=== PATIENT | male | born 1995 | race African-American/Black ===

== ENCOUNTER 2016-04-03 10:15 | Emergency (ER) ==
--- NOTE | 2016-04-03 11:33 | EDDOCDS ---
Nurse's Notes [facility] Name: Tim Edward Age: 20 yrs Sex: Male : 1995 Arrival Date: 04/03/2016 Time: 10:15 Bed TR5 Private MD: SONIA River Diagnosis: Acute pharyngitis, unspecified Presentation: 04/03 10:24 Presenting complaint: Patient states: he has had a headache and sore throat for 2 days kcs - has chills and fever. Adult Sepsis Screening: The patient does not have new or worsening altered mentation. Patient's respiratory rate is less than 22. Systolic blood pressure is greater than 100. Patient has a qSOFA score of 0- Negative Sepsis Screen. Suicide/Homicide risk assessment- the patient denies having any suicidal and/or homicidal ideations and does not present with any other emotional, behavioral or mental health complaints. 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 Transition of care: patient was not received from another setting of care. 10:24 Acuity: NATANAEL Level 4 kcs 10:24 Method Of Arrival: Walkin/Carried/Asstd kcs Triage Assessment: 10:26 General: Appears comfortable, well developed, well nourished, well groomed, Behavior is kcs cooperative, pleasant. Pain: Location: head = 5/10 and throat = 8/10 Pain currently is 5 out of 10 on a pain scale. HIV screening NA for this visit active duty . Neurological: Level of Consciousness is awake, alert. Respiratory: Airway is patent Respiratory effort is even, unlabored, Respiratory pattern is regular, symmetrical. Derm: Skin is intact, is healthy with good turgor, Skin is dry, Skin is black. Historical: - Allergies: No known drug Allergies; - Home Meds: 1. none - PMHx: none; - PSHx: left thumb surgery; left wrist surgery; - Social history: Smoking status: Patient uses tobacco products, light tobacco smoker. No barriers to communication noted, The patient speaks fluent Italian. - Family history: Not pertinent. - : The pt / caregiver states he / she is not on anticoagulants. Home medication list is obtained from the patient. - Exposure Risk Screening:: None identified. Screenin:00 Screening information is obtained from the patient. Fall risk: No risks identified. srm Assistance ADL's: requires no assistance with activities of daily living. Abuse/DV Screen: The patient / caregiver reports he/she is: not in a situation that causes fear, pain or injury. Nutritional screening: No deficits noted. Advance Directives: There is no active DNR order. home support is adequate. Assessment: 11:00 General: Appears in no apparent distress, Behavior is appropriate for age, cooperative. srm EENT: Throat is pink sounds full when speaks. Respiratory: No deficits noted. GI: No deficits noted. Vital Signs: 10:17 BP 137 / 75; Pulse 87; Resp 16; Temp 96.7(T); Pulse Ox 100% on R/A; Weight 90.72 kg lr2 (R); Height 6 ft. 0 in. (182.88 cm) (R); Pain 7/10; 10:17 Body Mass Index 27.12 (90.72 kg, 182.88 cm) lr2 Vitals: 10:17 Log In Time: April 03, 2016 at 10:15. lr2 10:47 Strep Screen is obtained and tested: Negative, a GATSNEG culture is ordered in [facility] and sent. ED Course: 10:17 Patient visited by Aleah Gaffney. lr2 10:17 Patient moved to Waiting lr2 10:18 Aleta [facility] is Private Physician. lr2 10:18 Patient moved to Pre RCE lr2 10:25 Triage Initiated kcs 10:31 Patient moved to Triage 2 srm 10:45 Rebecca Zamora PA-C is [facility]. dt4 10:45 Lin Gardiner MD is Attending Physician. dt4 10:45 Patient visited by Rebecca Zamora PA-C. dt4 11:00 The patient / caregiver is instructed regarding the plan of care and ED course. Patient [facility] has correct armband on for positive identification. 11:16 Patient moved to TR5 [facility] 11:32 No IV's were initiated during this patient's visit. No procedures done that require srm assistance. Order Results: There are currently no results for this order. Outcome: 11:05 Discharge ordered by Provider. dt4 11:18 Discharge Assessment: patient administered narcotics - no. The following High Risk [facility] Discharge criteria are identified: None. Discharged to home ambulatory. Condition: good Condition: stable. Discharge instructions given to patient, Instructed on discharge instructions, follow up and referral plans. medication usage, Demonstrated understanding of instructions, medications, Pt was receptive of discharge instructions/ teaching. Prescriptions given X 1. No special radiology studies were completed. Property sent home with patient. 11:32 Patient left the ED. srm Signatures: Luisa Iverson, RN Narda Pearson RN RN srm Tschudi, Diane, BRADYC PAEzequiel dt4 Aleah Gaffney lr2 MTDD
--- NOTE | 2016-04-03 11:33 | EDDOCDS ---
Physician Documentation [facility] Name: Tim Edward Age: 20 yrs Sex: Male : 1995 Arrival Date: 04/03/2016 Time: 10:15 Bed TR5 Private MD: Aleta [facility] Disposition: 04/03/16 11:05 Discharged to Home/Self Care. Impression: Acute pharyngitis, unspecified. - Condition is Stable. - Discharge Instructions: Pharyngitis, Sore Throat. - Prescriptions for magic mouthwash Mucous Membrane Solution - as directed 5 milliliters by ORAL route 3-4 times daily As needed GARGLE, SWISH, SPIT. MAALOX, LIQUID BENADRYL, VISCOUS LIDOCAINE. 1:1:1; 237 milliliter. - Medication Reconciliation, Local Pharmacy Hours form. - Follow up: Emergency Department; When: As needed; Reason: Worsening of conditions. Follow up: Private Physician; When: 2 - 3 days; Reason: Wound/Symptom Recheck, Recheck today's complaints, Continuance of care. - Problem is new. - Symptoms are unchanged. Historical: - Allergies: No known drug Allergies; - Home Meds: 1. none - PMHx: none; - PSHx: left thumb surgery; left wrist surgery; - Social history: Smoking status: Patient uses tobacco products, light tobacco smoker. No barriers to communication noted, The patient speaks fluent Spanish. - Family history: Not pertinent. - : The pt / caregiver states he / she is not on anticoagulants. Home medication list is obtained from the patient. - Exposure Risk Screening:: None identified. Vital Signs: 04/03 10:17 BP 137 / 75; Pulse 87; Resp 16; Temp 96.7(T); Pulse Ox 100% on R/A; Weight 90.72 kg / lr2 200 lbs (R); Height 6 ft. 0 in. (182.88 cm) (R); Pain 7/10; 10:17 Body Mass Index 27.12 (90.72 kg, 182.88 cm) lr2 MDM: 10:39 Strep Screen, Nursing ordered. dt4 10:47 GATS (NEGATIVE STREP SCREEN) Ordered. EDMS Signatures: Dispatcher [employer] EDCO Luisa Iverson RN RN [facility] Narda Omer RN RN srm Rebecca Zamora, BRADYC PA-C dt4 MTDD
--- NOTE | 2016-04-05 12:33 | EDDOCDS ---
Physician Documentation [facility] Name: Tim Edward Age: 20 yrs Sex: Male : 1995 Arrival Date: 04/03/2016 Time: 10:15 Bed TR5 Private MD: Aleta [facility] [place] Disposition: 04/03/16 11:05 Discharged to Home/Self Care. Impression: Acute pharyngitis, unspecified. - Condition is Stable. - Discharge Instructions: Pharyngitis, Sore Throat. - Prescriptions for magic mouthwash Mucous Membrane Solution - as directed 5 milliliters by ORAL route 3-4 times daily As needed GARGLE, SWISH, SPIT. MAALOX, LIQUID BENADRYL, VISCOUS LIDOCAINE. 1:1:1; 237 milliliter. - Medication Reconciliation, Local Pharmacy Hours form. - Follow up: Emergency Department; When: As needed; Reason: Worsening of conditions. Follow up: Private Physician; When: 2 - 3 days; Reason: Wound/Symptom Recheck, Recheck today's complaints, Continuance of care. - Problem is new. - Symptoms are unchanged. Historical: - Allergies: No known drug Allergies; - Home Meds: 1. none - PMHx: none; - PSHx: left thumb surgery; left wrist surgery; - Social history: Smoking status: Patient uses tobacco products, light tobacco smoker. No barriers to communication noted, The patient speaks fluent Setswana. - Family history: Not pertinent. - : The pt / caregiver states he / she is not on anticoagulants. Home medication list is obtained from the patient. - Exposure Risk Screening:: None identified. Vital Signs: 04/03 10:17 BP 137 / 75; Pulse 87; Resp 16; Temp 96.7(T); Pulse Ox 100% on R/A; Weight 90.72 kg / lr2 200 lbs (R); Height 6 ft. 0 in. (182.88 cm) (R); Pain 7/10; 10:17 Body Mass Index 27.12 (90.72 kg, 182.88 cm) lr2 MDM: 10:39 Strep Screen, Nursing ordered. dt4 10:47 GATS (NEGATIVE STREP SCREEN) Ordered. EDMS 13:28 T-Sheet-- Draft Copy was scanned into [employer] and attached to record. gb Signatures: Dispatcher G-[employer] Luisa More RN RN [facility] Narda Omer RN RN [facility] Lakisha Spear, Hernesto Reg Rebecca Wilson PA-C PA-C dt4 The chart was reviewed and I authenticate all verbal orders and agree with the evaluation and treatment provided.Attachments: 13:28 T-Sheet-- Draft Copy gb Chart Complete MTDD
--- NOTE | 2016-04-05 12:33 | EDDOCDS ---
Physician Documentation [facility] Name: Tim Edward Age: 20 yrs Sex: Male : 1995 Arrival Date: 04/03/2016 Time: 10:15 Bed TR5 Private MD: Ale[place] [facility] Disposition: 04/03/16 11:05 Discharged to Home/Self Care. Impression: Acute pharyngitis, unspecified. - Condition is Stable. - Discharge Instructions: Pharyngitis, Sore Throat. - Prescriptions for magic mouthwash Mucous Membrane Solution - as directed 5 milliliters by ORAL route 3-4 times daily As needed GARGLE, SWISH, SPIT. MAALOX, LIQUID BENADRYL, VISCOUS LIDOCAINE. 1:1:1; 237 milliliter. - Medication Reconciliation, Local Pharmacy Hours form. - Follow up: Emergency Department; When: As needed; Reason: Worsening of conditions. Follow up: Private Physician; When: 2 - 3 days; Reason: Wound/Symptom Recheck, Recheck today's complaints, Continuance of care. - Problem is new. - Symptoms are unchanged. Historical: - Allergies: No known drug Allergies; - Home Meds: 1. none - PMHx: none; - PSHx: left thumb surgery; left wrist surgery; - Social history: Smoking status: Patient uses tobacco products, light tobacco smoker. No barriers to communication noted, The patient speaks fluent Lao. - Family history: Not pertinent. - : The pt / caregiver states he / she is not on anticoagulants. Home medication list is obtained from the patient. - Exposure Risk Screening:: None identified. Vital Signs: 04/03 10:17 BP 137 / 75; Pulse 87; Resp 16; Temp 96.7(T); Pulse Ox 100% on R/A; Weight 90.72 kg / lr2 200 lbs (R); Height 6 ft. 0 in. (182.88 cm) (R); Pain 7/10; 10:17 Body Mass Index 27.12 (90.72 kg, 182.88 cm) lr2 MDM: 10:39 Strep Screen, Nursing ordered. dt4 10:47 GATS (NEGATIVE STREP SCREEN) Ordered. EDMS 13:28 T-Sheet-- Draft Copy was scanned into [employer] and attached to record. gb Signatures: Dispatcher [employer] Luisa More RN RN [facility] Narda Omer RN RN [facility] Lakisha Spear, Hernesto Reg Rebecca Wilson PA-C PA-C dt4 The chart was reviewed and I authenticate all verbal orders and agree with the evaluation and treatment provided.Attachments: 13:28 T-Sheet-- Draft Copy gb Chart Complete MTDD
--- NOTE | 2016-04-05 12:33 | EDDOCDS ---
Nurse's Notes [facility] Name: Tim Edward Age: 20 yrs Sex: Male : 1995 Arrival Date: 04/03/2016 Time: 10:15 Bed TR5 Private MD: SONIA River Diagnosis: Acute pharyngitis, unspecified Presentation: 04/03 10:24 Presenting complaint: Patient states: he has had a headache and sore throat for 2 days kcs - has chills and fever. Adult Sepsis Screening: The patient does not have new or worsening altered mentation. Patient's respiratory rate is less than 22. Systolic blood pressure is greater than 100. Patient has a qSOFA score of 0- Negative Sepsis Screen. Suicide/Homicide risk assessment- the patient denies having any suicidal and/or homicidal ideations and does not present with any other emotional, behavioral or mental health complaints. 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 Transition of care: patient was not received from another setting of care. 10:24 Acuity: NATANAEL Level 4 kcs 10:24 Method Of Arrival: Walkin/Carried/Asstd kcs Triage Assessment: 10:26 General: Appears comfortable, well developed, well nourished, well groomed, Behavior is kcs cooperative, pleasant. Pain: Location: head = 5/10 and throat = 8/10 Pain currently is 5 out of 10 on a pain scale. HIV screening NA for this visit active duty . Neurological: Level of Consciousness is awake, alert. Respiratory: Airway is patent Respiratory effort is even, unlabored, Respiratory pattern is regular, symmetrical. Derm: Skin is intact, is healthy with good turgor, Skin is dry, Skin is black. Historical: - Allergies: No known drug Allergies; - Home Meds: 1. none - PMHx: none; - PSHx: left thumb surgery; left wrist surgery; - Social history: Smoking status: Patient uses tobacco products, light tobacco smoker. No barriers to communication noted, The patient speaks fluent Sami. - Family history: Not pertinent. - : The pt / caregiver states he / she is not on anticoagulants. Home medication list is obtained from the patient. - Exposure Risk Screening:: None identified. Screenin:00 Screening information is obtained from the patient. Fall risk: No risks identified. srm Assistance ADL's: requires no assistance with activities of daily living. Abuse/DV Screen: The patient / caregiver reports he/she is: not in a situation that causes fear, pain or injury. Nutritional screening: No deficits noted. Advance Directives: There is no active DNR order. home support is adequate. Assessment: 11:00 General: Appears in no apparent distress, Behavior is appropriate for age, cooperative. srm EENT: Throat is pink sounds full when speaks. Respiratory: No deficits noted. GI: No deficits noted. Vital Signs: 10:17 BP 137 / 75; Pulse 87; Resp 16; Temp 96.7(T); Pulse Ox 100% on R/A; Weight 90.72 kg lr2 (R); Height 6 ft. 0 in. (182.88 cm) (R); Pain 7/10; 10:17 Body Mass Index 27.12 (90.72 kg, 182.88 cm) lr2 Vitals: 10:17 Log In Time: April 03, 2016 at 10:15. lr2 10:47 Strep Screen is obtained and tested: Negative, a GATSNEG culture is ordered in [facility] and sent. ED Course: 10:17 Patient visited by Aleah Gaffney. lr2 10:17 Patient moved to Waiting lr2 10:18 Aleta [facility] is Private Physician. lr2 10:18 Patient moved to Pre RCE lr2 10:25 Triage Initiated kcs 10:31 Patient moved to Triage 2 srm 10:45 [facility] dt4 10:45 Lin Gardiner MD is Attending Physician. dt4 10:45 Patient visited by Rebecca Zamora PA-C. dt4 11:00 The patient / caregiver is instructed regarding the plan of care and ED course. Patient [facility] has correct armband on for positive identification. 11:16 Patient moved to TR5 [facility] 11:32 No IV's were initiated during this patient's visit. No procedures done that require [facility] assistance. 13:28 T-Sheet-- Draft Copy was scanned into [employer] and attached to record. gb Order Results: Lab Order: GATS (NEGATIVE STREP SCREEN); SPEC'M 04/03/16 10:42 Test: GATS CULTURE (NEG STREP SCR); Value: GATS RESULT NEGATIVE FOR STREP PYOGENES (GROUP A); Status: F Test: GATS CULTURE (NEG STREP SCR); Value: <EXTERNAL COMMENT eCWMed> FULL REPORT IN LAB NOTES (eCW and Medent).; Status: F Outcome: 11:05 Discharge ordered by Provider. dt4 11:18 Discharge Assessment: patient administered narcotics - no. The following High Risk srm Discharge criteria are identified: None. Discharged to home ambulatory. Condition: good Condition: stable. Discharge instructions given to patient, Instructed on discharge instructions, follow up and referral plans. medication usage, Demonstrated understanding of instructions, medications, Pt was receptive of discharge instructions/ teaching. Prescriptions given X 1. No special radiology studies were completed. Property sent home with patient. 11:32 Patient left the ED. srm Signatures: Luisa Iverson RN RN [facility] Narda Omer RN RN srm Lakisha Spear, Hernesto Reg Rebecca Wilson, CARLOS GONZALEZ dt4 Aleah Gaffney lr2 Chart Complete MTDD
== END 2016-04-03 11:32 | disposition home or self-care (01) ==
LOC: M ED 10:15
DX: J02.9 Acute pharyngitis, unspecified (principal); F17.210 Nicotine dependence, cigarettes, uncomplicated

== ENCOUNTER 2016-05-16 08:02 | Emergency (ER) | payer OTHER ==
[~2016-05-16] VITALS: Ht 182.9 cm; Wt 90.7 kg
[2016-05-16 09:07] VITALS: BP 141/72
== END 2016-05-16 09:10 | disposition home or self-care (01) ==
LOC: M ED 08:48
DX: J02.9 Acute pharyngitis, unspecified (principal)